=== PATIENT | female | born 1990 | race Caucasian/White ===

== ENCOUNTER 2020-10-12 09:40 | Emergency (ER) | payer BC ==
[~2020-10-12] VITALS: Ht 167.6 cm; Wt 88.6 kg
[2020-10-12 10:17] VITALS: BP 111/61
[2020-10-12] MEDS ORDERED: DIPH28.34 TOP (10:50)
== END 2020-10-12 11:00 | disposition home or self-care (01) ==
LOC: ER 09:42
DX: O26.892 Other specified pregnancy related conditions, second trimester (principal); L23.7 Allergic contact dermatitis due to plants, except food; G57.01 Lesion of sciatic nerve, right lower limb; Z3A.23 23 weeks gestation of pregnancy
CPT/HCPCS: 99282